=== PATIENT | female | born 1995 | race African-American/Black ===

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

== ENCOUNTER 2017-02-06 16:36 | Observation (INO) | payer MEDICAID ==
[~2017-02-06] VITALS: Ht 160 cm; Wt 73.9 kg
[~2017-02-06 16:36] MED LIST: PREN-88 PO
[2017-02-06] MEDS ORDERED: PNV1TABL76 PO (17:05)
[2017-02-06] MEDS ORDERED: FOLI-43 PO (17:05)
[2017-02-06 17:37] LABS: CLARITY URINE CLEAR (CLEAR); COLOR URINE YELLOW (YELLOW); GLUCOSE URINE NEGATIVE (NEGATIVE); KETONES URINE 3+ (NEGATIVE); LEUKOCYTE ESTERASE URINE 3+ (NEGATIVE); NITRITE URINE NEGATIVE (NEGATIVE); OCCULT BLOOD URINE 1+ (NEGATIVE); PROTEIN URINE NEGATIVE (NEGATIVE); SPECIFIC GRAVITY URINE 1.008 (1.005-1.030); UROBILINOGEN URINE 0.2 E.U./dL (0.2-1.0)
[2017-02-06] MEDS ORDERED: DEXT 5%/LACTATED RINGERS 1,000 ML IV NR (17:54)
[2017-02-06] MEDS ORDERED: CEFAZOLIN 2,000 MG in DEXT 5% WATER 100 ML IV NR (18:45)
[2017-02-06] MEDS ORDERED: ONDANSETRON HCL 4MG/2ML VIAL IV NR (19:45)
[2017-02-06] MEDS ORDERED: ACETAMINOPHEN WITH CODEINE 300/30MG TABLET PO NR (19:45)
[2017-02-06 20:24] VITALS: BP 106/56
== END 2017-02-06 21:00 | disposition home or self-care (01) ==
LOC: L&D 16:36
PROVIDERS: ADMIT Specialist; ATTEND Specialist
DX: O26.893 Other specified pregnancy related conditions, third trimester (principal); R10.9 Unspecified abdominal pain; Z3A.34 34 weeks gestation of pregnancy
CPT/HCPCS: 81001; 96365; 96375; G0378; J0690; J2405; 99281; J7060

== ENCOUNTER 2017-02-06 23:51 | Observation (INO) | payer MEDICAID ==
[~2017-02-06] VITALS: Ht 160 cm; Wt 73.5 kg
[~2017-02-06 23:51] MED LIST changes: +FOLI-43 PO; +PNV1TABL76 PO
[2017-02-07] MEDS ORDERED: ACETAMINOPHEN 325MG TABLET PO PRN (01:00)
[2017-02-07] MEDS: LACTATED RINGERS 1,000 ML IV SCH ×2 (01:53→06:23)
[2017-02-07] MEDS: CEFAZOLIN 2,000 MG in DEXT 5% WATER 100 ML IV SCH ×2 (01:56→07:38)
[2017-02-07] MEDS ORDERED: TERBUTALINE SULFATE 1MG/ML VIAL SUBCUT SCH (07:00)
== END 2017-02-07 09:30 | disposition home or self-care (01) ==
LOC: L&D 23:51
PROVIDERS: ADMIT Specialist; ATTEND Specialist
DX: O26.893 Other specified pregnancy related conditions, third trimester (principal); R68.83 Chills (without fever); R10.30 Lower abdominal pain, unspecified; Z3A.34 34 weeks gestation of pregnancy
CPT/HCPCS: 82731; 96361; 96365; 96372; 96375; 99281; G0378; J0690; J3105; J7120; 96360; J7060